=== PATIENT | female | born 1935 | race Caucasian/White ===

== ENCOUNTER 2018-07-24 20:27 | Inpatient (IN) | payer OTHER ==
[2018-07-24] MEDS ORDERED: NA CHLORIDE 0.9% 1,000 ML ONE (20:56)
--- NOTE | 2018-07-24 21:13 | RAD REPORT ---
EXAM DESCRIPTION: RAD - Chest Single View - 07/24/2018 9:05 pm CLINICAL HISTORY: CHEST PAIN Chest pain. COMPARISON: No comparisons FINDINGS: Portable technique limits examination quality. The lungs are emphysematous but clear. The heart is normal in size. No displaced fractures.Atheroscle rosis of aorta. IMPRESSION: Prominent COPD.
--- NOTE | 2018-07-24 21:35 | ER ---
Nurse's Notes [facility] Name: Naun Jewell Age: 83 yrs Sex: Female : 1935 Arrival Date: 07/24/2018 Time: 20:28 Bed 7 Private MD: Diagnosis: Chest pain on breathing;Chest pain, unspecified;Chronic obstructive pulmonary disease with (acute) exacerbation;Urinary tract infection, site not specified Presentation: 07/24 20:28 Presenting complaint: EMS states: they were toned out for report of pt having chest bb pain with SOB after pt did breathing tx pt has had bronchitis. Transition of care: patient was not received from another setting of care. Onset of symptoms was July 24, 2018. Risk Assessment: Do you want to hurt yourself or someone else? Patient reports no desire to harm self or others. Initial Sepsis Screen: Does the patient meet any 2 criteria? No. Patient's initial sepsis screen is negative. Does the patient have a suspected source of infection? No. Patient's initial sepsis screen is negative. Care prior to arrival: Medication(s) given: ASA, 324 mg. 20:28 Method Of Arrival: EMS: [facility] bb 20:28 Acuity: DIDIER 3 bb Historical: - Allergies: 20:30 No Known Allergies; bb - Home Meds: 20:30 albuterol sulfate inhalation Inhl [Active]; bb - PMHx: 20:30 COPD; Bronchitis; bb - PSHx: 20:30 Hysterectomy; bb - Social history:: Smoking status: Patient/guardian denies using tobacco, the patient reports quitting approximately 10 years ago. - Ebola Screening: : No symptoms or risks identified at this time. - Family history:: not pertinent. Screenin:07 Abuse screen: Denies threats or abuse. Denies injuries from another. Nutritional tl1 screening: No deficits noted. Tuberculosis screening: No symptoms or risk factors identified. Fall Risk IV access (20 points). Assessment: 21:08 General: Appears in no apparent distress. comfortable, Behavior is calm, cooperative, tl1 appropriate for age. Pain: Denies pain. Neuro: Level of Consciousness is awake, alert, obeys commands, Oriented to person, place, time, situation. Cardiovascular: Reports shortness of breath, Denies lightheadedness, nausea, palpitations, Heart tones present Capillary refill < 3 seconds Patient's skin is warm and dry. Respiratory: Reports shortness of breath at rest cough that is Airway is patent Trachea midline Respiratory effort is even, unlabored, Respiratory pattern is regular, Breath sounds are coarse bilaterally. GI: Abdomen is non-distended, Bowel sounds present X 4 quads. Abd is soft and non tender X 4 quads. : No signs and/or symptoms were reported regarding the genitourinary system. EENT: No signs and/or symptoms were reported regarding the EENT system. Derm: No signs and/or symptoms reported regarding the dermatologic system. Musculoskeletal: No signs and/or symptoms reported regarding the musculoskeletal system. 23:09 Reassessment: Patient and/or family updated on plan of care and expected duration. Pain tl1 level reassessed. Patient is alert, oriented x 3, equal unlabored respirations, skin warm/dry/pink. Patient states feeling better. Patient states symptoms have improved. Vital Signs: 20:30 BP 162 / 70; Pulse 101; Resp 18 S; Temp 98.3(O); Pulse Ox 93% on R/A; Weight 78.02 kg bb (R); Height 5 ft. 7 in. (170.18 cm) (R); 21:12 BP 148 / 56; Pulse 91; Resp 19; Pulse Ox 94% on R/A; Pain 0/10; tl1 22:09 BP 118 / 72; Pulse 103; Resp 23; Pulse Ox 94% on R/A; Pain 0/10; tl1 23:07 BP 148 / 66; Pulse 103; Resp 20; Temp 98(O); Pulse Ox 94% on R/A; Pain 0/10; tl1 20:30 Body Mass Index 26.94 (78.02 kg, 170.18 cm) ED Course: 20:28 Patient arrived in ED. ds1 20:30 Triage completed. bb 20:30 Arm band placed on Patient placed in an exam room, on a stretcher. bb 20:30 Patient has correct armband on for positive identification. Placed in gown. Bed in low tl1 position. Call light in reach. Side rails up X 1. 20:40 Mahendra Chan MD is Attending Physician. [facility] 20:42 Margret Castillo RN is Primary Nurse. tl1 20:59 No provider procedures requiring assistance completed. Inserted saline lock: 20 gauge tl1 in left antecubital area, using aseptic technique. Blood collected. 21:05 XRAY Chest (1 view) In Process Unspecified. EDMS 21:34 Jared Snyder MD is Hospitalizing Provider. pipo 23:08 Patient admitted, IV remains in place. tl1 Administered Medications: 20:47 Not Given (324mg administered by [facility]): Aspirin 162 mg PO once tl1 20:55 Drug: NS 0.9% 1000 ml Route: IV; Rate: 75 ml/hr; Site: left antecubital; tl1 23:01 Follow up: IV Status: Infusion continued upon admission tl1 21:42 Drug: Xopenex 3.75 mg Route: Inhalation; tl1 22:12 Follow up: Response: No adverse reaction; Marked relief of symptoms tl1 21:42 Drug: AtroVENT Aerosol 0.5 mg Route: Inhalation; tl1 22:13 Follow up: Response: No adverse reaction; Marked relief of symptoms tl1 21:42 Drug: Lovenox 80 mg Route: Sub-Q; Site: abdomen; tl1 22:12 Follow up: Response: No adverse reaction; No change in condition tl1 21:43 Drug: SOLU-Medrol 125 mg Route: IVP; Infused Over: 2 mins; Site: left antecubital; tl1 22:11 Follow up: Response: No adverse reaction; No change in condition tl1 21:49 Drug: Rocephin - (cefTRIAXone) 1 grams Route: IVPB; Infused Over: 30 mins; Site: left tl1 antecubital; 22:11 Follow up: IV Status: Completed infusion tl1 Outcome: 21:35 Decision to Hospitalize by Provider. pipo 23:08 Admitted to Tele accompanied by tech, via wheelchair, with chart, Report called to tl1 Nataly 23:08 Condition: good 23:08 Instructed on the need for admit. 23:10 Patient left the ED. tl1 Signatures: Dispatcher [employer] Mahendra Garcia MD MD cha Sanford, Demi ds1 Mignon Martinez, RN RN bb Margret Castillo RN RN tl1
--- NOTE | 2018-07-24 21:35 | EDPHYS ---
Physician Documentation [facility] Name: Naun Jewell Age: 83 yrs Sex: Female : 1935 Arrival Date: 07/24/2018 Time: 20:28 Bed 7 Private MD: ED Physician Mahendra Chan HPI: 07/24 21:32 This 83 yrs old Female presents to ER via EMS with complaints of chest pain, pipo sob, hx of copd. 21:32 The patient has shortness of breath with light activity. Onset: The symptoms/episode pipo began/occurred just prior to arrival. Duration: The symptoms are chronic. The patient's shortness of breath is aggravated by nothing, is alleviated by nothing. The patient or guardian reports chest pain that is located primarily in the anterior chest wall. Onset: just prior to arrival. The patient or guardian reports airway noise, cough, difficulty breathing. Onset: The symptoms/episode began/occurred 2 day(s) ago. Modifying factors: The symptoms are alleviated by nothing. the symptoms are aggravated by nothing. Historical: - Allergies: 20:30 No Known Allergies; bb - Home Meds: 20:30 albuterol sulfate inhalation Inhl [Active]; bb - PMHx: 20:30 COPD; Bronchitis; bb - PSHx: 20:30 Hysterectomy; bb - Social history:: Smoking status: Patient/guardian denies using tobacco, the patient reports quitting approximately 10 years ago. - Ebola Screening: : No symptoms or risks identified at this time. - Family history:: not pertinent. ROS: 21:32 Constitutional: Negative for fever, chills, and weight loss, Eyes: Negative for injury, pipo pain, redness, and discharge, ENT: Negative for injury, pain, and discharge, Neck: Negative for injury, pain, and swelling, Cardiovascular: Negative for chest pain, palpitations, and edema, Abdomen/GI: Negative for abdominal pain, nausea, vomiting, diarrhea, and constipation, Back: Negative for injury and pain, : Negative for injury, bleeding, discharge, and swelling, MS/Extremity: Negative for injury and deformity, Skin: Negative for injury, rash, and discoloration, Neuro: Negative for headache, weakness, numbness, tingling, and seizure, Psych: Negative for depression, anxiety, suicide ideation, homicidal ideation, and hallucinations, Allergy/Immunology: Negative for hives, rash, and allergies, Endocrine: Negative for neck swelling, polydipsia, polyuria, polyphagia, and marked weight changes, Hematologic/Lymphatic: Negative for swollen nodes, abnormal bleeding, and unusual bruising. 21:32 Respiratory: Positive for cough, shortness of breath, wheezing, inspiratory, expiratory. Exam: 21:32 Constitutional: This is a well developed, well nourished patient who is awake, alert, pipo and in no acute distress. Head/Face: Normocephalic, atraumatic. Eyes: Pupils equal round and reactive to light, extra-ocular motions intact. Lids and lashes normal. Conjunctiva and sclera are non-icteric and not injected. Cornea within normal limits. Periorbital areas with no swelling, redness, or edema. ENT: Nares patent. No nasal discharge, no septal abnormalities noted. Tympanic membranes are normal and external auditory canals are clear. Oropharynx with no redness, swelling, or masses, exudates, or evidence of obstruction, uvula midline. Mucous membranes moist. Neck: Trachea midline, no thyromegaly or masses palpated, and no cervical lymphadenopathy. Supple, full range of motion without nuchal rigidity, or vertebral point tenderness. No Meningismus. Chest/axilla: Normal chest wall appearance and motion. Nontender with no deformity. No lesions are appreciated. Cardiovascular: Regular rate and rhythm with a normal S1 and S2. No gallops, murmurs, or rubs. Normal PMI, no JVD. No pulse deficits. Abdomen/GI: Soft, non-tender, with normal bowel sounds. No distension or tympany. No guarding or rebound. No evidence of tenderness throughout. Back: No spinal tenderness. No costovertebral tenderness. Full range of motion. Female : Normal external genitalia. Skin: Warm, dry with normal turgor. Normal color with no rashes, no lesions, and no evidence of cellulitis. MS/ Extremity: Pulses equal, no cyanosis. Neurovascular intact. Full, normal range of motion. Neuro: Awake and alert, GCS 15, oriented to person, place, time, and situation. Cranial nerves II-XII grossly intact. Motor strength 5/5 in all extremities. Sensory grossly intact. Cerebellar exam normal. Normal gait. Psych: Awake, alert, with orientation to person, place and time. Behavior, mood, and affect are within normal limits. 21:32 Respiratory: the patient does not display signs of respiratory distress, Respirations: labored breathing, that is mild, Breath sounds: decreased breath sounds, rhonchi, wheezing: inspiratory expiratory Vital Signs: 20:30 BP 162 / 70; Pulse 101; Resp 18 S; Temp 98.3(O); Pulse Ox 93% on R/A; Weight 78.02 kg bb (R); Height 5 ft. 7 in. (170.18 cm) (R); 21:12 BP 148 / 56; Pulse 91; Resp 19; Pulse Ox 94% on R/A; Pain 0/10; tl1 22:09 BP 118 / 72; Pulse 103; Resp 23; Pulse Ox 94% on R/A; Pain 0/10; tl1 23:07 BP 148 / 66; Pulse 103; Resp 20; Temp 98(O); Pulse Ox 94% on R/A; Pain 0/10; tl1 20:30 Body Mass Index 26.94 (78.02 kg, 170.18 cm) MDM: 20:40 Patient medically screened. [facility] 21:37 Data reviewed: vital signs, nurses notes, lab test result(s), EKG, radiologic studies, pipo plain films. 07/24 20:43 Order name: Basic Metabolic Panel; Complete Time: 22:39 tl1 07/24 20:43 Order name: CBC with Diff; Complete Time: 22:07 tl1 07/24 20:43 Order name: LFT's; Complete Time: 22:39 tl1 07/24 20:43 Order name: Magnesium; Complete Time: 22:39 1 07/24 20:43 Order name: NT PRO-BNP; Complete Time: 22:39 1 07/24 20:43 Order name: PT-INR; Complete Time: 21:47 tl1 07/24 20:43 Order name: Troponin (emerg Dept Use Only); Complete Time: 22:39 tl1 07/24 20:43 Order name: XRAY Chest (1 view); Complete Time: 21:47 tl1 07/24 20:46 Order name: Urine Culture [facility] 07/24 21:05 Order name: Lipase; Complete Time: 22:39 EDMS 07/24 21:46 Order name: Basic Metabolic Panel EDMS 07/24 21:46 Order name: Basic Metabolic Panel EDMS 07/24 21:46 Order name: CBC with Automated Diff EDMS 07/24 21:46 Order name: CBC with Automated Diff EDMS 07/24 21:46 Order name: NT PRO-BNP EDMS 07/24 21:46 Order name: NT PRO-BNP EDMS 07/24 21:46 Order name: Troponin I EDMS 07/24 21:46 Order name: Troponin I EDMS 07/24 21:46 Order name: Troponin I EDMS 07/24 22:40 Order name: Urine Dipstick--Ancillary (enter results) ms 07/24 23:00 Order name: Urine Dipstick-Ancillary EDMS 07/24 20:43 Order name: EKG; Complete Time: 20:43 tl1 07/24 20:43 Order name: Cardiac monitoring; Complete Time: 20:57 tl1 07/24 20:43 Order name: EKG - Nurse/Tech; Complete Time: 20:56 tl1 07/24 20:43 Order name: IV Saline Lock; Complete Time: 20:56 tl1 07/24 20:43 Order name: Labs collected and sent; Complete Time: 20:56 tl1 07/24 20:43 Order name: O2 Per Protocol; Complete Time: 20:56 tl1 07/24 20:43 Order name: O2 Sat Monitoring; Complete Time: 20:56 tl1 07/24 20:46 Order name: EKG; Complete Time: 20:47 pipo 07/24 20:46 Order name: Cardiac monitoring; Complete Time: 20:57 pipo 07/24 20:46 Order name: EKG - Nurse/Tech; Complete Time: 20:57 pipo 07/24 20:46 Order name: IV Saline Lock; Complete Time: 20:58 pipo 07/24 20:46 Order name: Labs collected and sent; Complete Time: 20:58 pipo 07/24 20:46 Order name: O2 Per Protocol; Complete Time: 20:58 pipo 07/24 20:46 Order name: O2 Sat Monitoring; Complete Time: 20:58 pipo 07/24 20:46 Order name: Urine Dipstick-Ancillary (obtain specimen); Complete Time: 22:39 pipo 07/24 21:46 Order name: CONS Physician Consult EDWI 07/24 21:46 Order name: Heart Healthy EDWI 07/24 21:46 Order name: EKG Electrocardiogram EDWI 07/24 21:46 Order name: EKG Electrocardiogram EDMS 07/24 21:46 Order name: Chest Single View EDMS 07/24 21:46 Order name: Chest Single View EDMS Administered Medications: 20:47 Not Given (324mg administered by EMS [employer]CHNICIAN): Aspirin 162 mg PO once tl1 20:55 Drug: NS 0.9% 1000 ml Route: IV; Rate: 75 ml/hr; Site: left antecubital; tl1 23:01 Follow up: IV Status: Infusion continued upon admission tl1 21:42 Drug: Xopenex 3.75 mg Route: Inhalation; tl1 22:12 Follow up: Response: No adverse reaction; Marked relief of symptoms tl1 21:42 Drug: AtroVENT Aerosol 0.5 mg Route: Inhalation; tl1 22:13 Follow up: Response: No adverse reaction; Marked relief of symptoms tl1 21:42 Drug: Lovenox 80 mg Route: Sub-Q; Site: abdomen; tl1 22:12 Follow up: Response: No adverse reaction; No change in condition tl1 21:43 Drug: SOLU-Medrol 125 mg Route: IVP; Infused Over: 2 mins; Site: left antecubital; tl1 22:11 Follow up: Response: No adverse reaction; No change in condition tl1 21:49 Drug: Rocephin - (cefTRIAXone) 1 grams Route: IVPB; Infused Over: 30 mins; Site: left tl1 antecubital; 22:11 Follow up: IV Status: Completed infusion tl1 Disposition: 07/24/18 21:35 Hospitalization ordered by Jared Snyder for Inpatient Admission. Preliminary diagnosis are Chest pain on breathing, Chest pain, unspecified, Chronic obstructive pulmonary disease with (acute) exacerbation, Urinary tract infection, site not specified. - Bed requested for Telemetry/MedSurg (Inpatient). - Status is Inpatient Admission. tl1 - Condition is Fair. - Problem is new. - Symptoms have improved. UTI on Admission? Yes Signatures: Dispatcher [employer] EDMS Mahendra Chan MD MD cha Ballard, Brenda, RN RN Alis Florez ms, Tonya, RN RN tl1 Zahra Bill RN RN cg Corrections: (The following items were deleted from the chart) 20:49 20:46 Chest Single View+RAD.RAD.BRZ ordered. [facility] EDWI 21: 20:46 BASIC METABOLIC PANEL+C.LAB.BRZ ordered. [facility] 21: 20:46 HEPATIC FUNCTION+C.LAB.BRZ ordered. [facility] 21: 20:46 MAGNESIUM+C.LAB.BRZ ordered. [facility] 21: 20:46 PROBNP+C.LAB.BRZ ordered. [facility] 21: 20:46 TROPONIN (EMERG DEPT USE ONLY)+C.LAB.BRZ ordered. [facility] 21: 20:46 LIPASE+C.LAB.BRZ ordered. [facility] 21: 20:46 CBC+H.LAB.BRZ ordered. [facility] 21: 20:46 PROTIME (+INR)+COAG.LAB.BRZ ordered. [facility] 22: 21:35 Hospitalization Ordered by Jared Snyder MD for Inpatient Admission. Preliminary ms diagnosis is Chest pain on breathing; Chest pain, unspecified; Chronic obstructive pulmonary disease with (acute) exacerbation. Bed requested for Telemetry/MedSurg (Inpatient). Status is Inpatient Admission. Condition is Fair. Problem is new. Symptoms have improved. UTI on Admission? No. pipo 22:41 22:21 07/24/2018 21:35 Hospitalization Ordered by Jared Snyder MD for Inpatient pipo Admission. Preliminary diagnosis is Chest pain on breathing; Chest pain, unspecified; Chronic obstructive pulmonary disease with (acute) exacerbation. Bed requested for Telemetry/MedSurg (Inpatient). Status is Inpatient Admission. Condition is Fair. Problem is new. Symptoms have improved. UTI on Admission? No. ms 22:59 22:41 07/24/2018 21:35 Hospitalization Ordered by Jared Snyder MD for Inpatient cg Admission. Preliminary diagnosis is Chest pain on breathing; Chest pain, unspecified; Chronic obstructive pulmonary disease with (acute) exacerbation; Urinary tract infection, site not specified. Bed requested for Telemetry/MedSurg (Inpatient). Status is Inpatient Admission. Condition is Fair. Problem is new. Symptoms have improved. UTI on Admission? Yes. pipo 23:10 22:59 07/24/2018 21:35 Hospitalization Ordered by Jared Snyder MD for Inpatient tl1 Admission. Preliminary diagnosis is Chest pain on breathing; Chest pain, unspecified; Chronic obstructive pulmonary disease with (acute) exacerbation; Urinary tract infection, site not specified. Bed requested for Telemetry/MedSurg (Inpatient). Status is Inpatient Admission. Condition is Fair. Problem is new. Symptoms have improved. UTI on Admission? Yes. cg
[2018-07-24] MEDS ORDERED: METHYLPREDNISOLONE 125 MG INJ ONE (21:41)
[2018-07-24] MEDS ORDERED: ACETAMINOPHEN 500 MG TAB PO PRN (21:41)
[2018-07-24] MEDS ORDERED: IPRATROPIUM BROM 0.5MG/2.5ML ONE (21:41)
[2018-07-24] MEDS ORDERED: LEVALBUTEROL 1.25 MG/3 ML NEB ONE (21:41)
[2018-07-24] MEDS ORDERED: IPRATROPIUM BROM 0.5MG/2.5ML NEB PRN (21:41)
[2018-07-24] MEDS ORDERED: MORPHINE 4 MG/ML SYR IV PRN (21:41)
[2018-07-24] MEDS ORDERED: ONDANSETRON 4 MG/2 ML VIAL IV PRN (21:41)
[2018-07-24] MEDS ORDERED: ENOXAPARIN 80 MG/0.8 ML SQ ONE (21:42)
[2018-07-24 21:50] LABS: Absolute Lymphocytes (CBC) 2.6 K/uL (0.7-4.9); Absolute Neutrophil 7.3 K/uL (1.8-8.0); Basophils % 0.6 % (0-1.3); Eosinophils % 6.1 % (0-4.4); Hematocrit 41.5 % (36.0-45.0); Lymphocytes % 22.2 % (15.3-44.8); MCH 31.6 pg (27.0-35.0); MPV 8.5 fL (7.6-11.3); Monocytes % 8.9 % (3.3-12.3); RBC Red Blood Cell Count 4.42 M/uL (3.86-4.86)
[2018-07-24] MEDS ORDERED: CEFTRIAXONE/SWI 1gm 1 GM/10 ML SYR ONE (21:53)
[2018-07-24 22:10] LABS: ALT/SGPT 25 U/L (12-78); AST/SGOT 19 U/L (15-37); Albumin 3.6 g/dL (3.4-5.0); Alkaline Phosphatase 98 U/L (45-117); BUN Blood Urea Nitrogen 15 mg/dL (7-18); Bicarbonate 29 mmol/L (21-32); Bilirubin Direct 0.1 mg/dL (0-0.2); Bilirubin Total 0.3 mg/dL (0.2-1.0); Glucose Level 121 mg/dL (74-106); Lipase 136 U/L (73-393); Magnesium 2.3 mg/dL (1.8-2.4); NT PRO-BNP 56 pg/mL (<450); Potassium 3.6 mmol/L (3.5-5.1); Protein, Total 7.4 g/dL (6.4-8.2); Sodium Level 135 mmol/L (136-145); Troponin (Emerg Dept Use Only) < 0.02 ng/mL (0.0-0.045)
[2018-07-24 23:00] LABS: Urine Blood NEGATIVE (NEG); Urine Glucose NEGATIVE (NEG); Urine Protein NEGATIVE (NEG); Urine Specific Gravity <1.005 (1.005-1.030); Urine pH 5.5 (5.0-7.0)
[2018-07-25 00:49] VITALS: BMI 27.3
[2018-07-25] MEDS: METHYLPREDNISOLONE 40 MG INJ IV SCH ×3 (01:00→17:00)
[2018-07-25] MEDS: ALBUTEROL 2.5 MG/3 ML NEB SOL NEB SCH ×7 (01:06→20:04)
[2018-07-25 05:14] LABS: Absolute Lymphocytes (CBC) 0.5 K/uL (0.7-4.9); Absolute Monocytes 0.1 K/uL (0.1-1.3); Absolute Neutrophil 9.1 K/uL (1.8-8.0); Basophils % 0.2 % (0-1.3); Eosinophils % 0.1 % (0-4.4); Hematocrit 44.1 % (36.0-45.0); Lymphocytes % 5.2 % (15.3-44.8); MCV 93.1 fL (80-100); MPV 8.4 fL (7.6-11.3); Monocytes % 0.6 % (3.3-12.3); RBC Red Blood Cell Count 4.74 M/uL (3.86-4.86)
[2018-07-25 05:47] LABS: Blood Morphology Comment NOT SEEN (NOT SEEN); Platelet Estimate ADEQ
--- NOTE | 2018-07-25 08:33 | RAD REPORT ---
EXAM DESCRIPTION: Narciso Single View07/25/2018 6:50 am CLINICAL HISTORY: Chest pain COMPARISON: none FINDINGS: The lungs appear clear of acute infiltrate. A small granuloma is suspected within the rig ht lung. The heart is normal size IMPRESSION: No acute abnormalities displayed
[2018-07-25] MEDS ORDERED: ENOXAPARIN 80 MG/0.8 ML SQ SCH ×2 (09:00)
[2018-07-25] MEDS ORDERED: CEFTRIAXONE 1 GM/NS 50 ML 1 GM/50 ML BAG IV SCH (09:00)
[2018-07-25] MEDS: ASPIRIN EC 81 MG TAB PO SCH (09:50)
--- NOTE | 2018-07-25 12:33 | P.SSS ---
Patient History Date of Service: 07/25/18 Reason for admission: CHEST HEAVINESS History of Present Illness: MS. VINCENT HAS HAD COPD FOR YEARS, LATELY SHE HAS EXACERBATION AND LAST SET OF INHALERS ARE WORKING WELL WITH HER. SHE CAME TO ER SHE HAD SOME CHEST HEAVINESS. THIS PAIN IS GONE NOW. SHE IS SITTING IN BED WITH NO SYMPTOMS. HER EKG IS NORMAL. SHE IS ABLE TO AMBULATE WITH NO PAIN NOW. Allergies No Known Allergies Allergy (Verified 07/25/18 01:15) Home Medications: Albuterol Sulfate [Proair Hfa] 2 puff IH QIDP PRN 07/25/18 - Past Medical/Surgical History Has patient received pneumonia vaccine in the past: Yes Diabetic: No -: COPD -: bronchitis -: hysterectomy - Family History Mother -: Heart disease Father -: Lung disease - Social History Smoking Status: Former smoker Alcohol use: No CD- Drugs: No Caffeine use: Yes Place of Residence: Home Review of Systems 10-point ROS is otherwise unremarkable Respiratory: Shortness of Breath Physical Examination - Vital Signs Temperature: 98.1 F Blood Pressure: 128/69 Pulse: 98 Respirations: 17 Pulse Ox (%): 92 - Physical Exam General: Alert, In no apparent distress HEENT: Atraumatic, PERRLA, Mucous membr. moist/pink, EOMI, Sclerae nonicteric Neck: Supple, 2+ carotid pulse no bruit, No LAD, Without JVD or thyroid abnormality Respiratory: Diminished Cardiovascular: Regular rate/rhythm, Normal S1 S2 Gastrointestinal: Normal bowel sounds, No tenderness Musculoskeletal: No tenderness Integumentary: No rashes Neurological: Normal gait, Normal speech, Normal strength at 5/5 x4 extr, Normal tone, Normal affect Lymphatics: No axilla or inguinal lymphadenopathy - Studies Laboratory Data (last 24 hrs) 07/24/18 20:46: PT Cancelled, INR Cancelled 07/24/18 20:46: WBC Cancelled, Hgb Cancelled, Hct Cancelled, Plt Count Cancelled 07/24/18 20:46: Sodium Cancelled, Potassium Cancelled, BUN Cancelled, Creatinine Cancelled, Glucose Cancelled, Magnesium Cancelled, Total Bilirubin Cancelled, AST Cancelled, ALT Cancelled, Alkaline Phosphatase Cancelled, Lipase Cancelled 07/24/18 20:45: PT 11.8, INR 1.00 07/24/18 20:45: WBC 11.7 H, Hgb 14.0, Hct 41.5, Plt Count 285 07/24/18 20:45: Sodium 135 L, Potassium 3.6, BUN 15, Creatinine 0.90, Glucose 121 H, Magnesium 2.3, Total Bilirubin 0.3, AST 19, ALT 25, Alkaline Phosphatase 98, Lipase 136 - Diagnosis (Problem(s)) (1) Chest heaviness Current Visit: Yes Status: Acute Plan: SHE WILL GO TO [facility]. SHE HAS NO PAIN EKG IS NORMAL TROPONIN IS NORMAL. STABLE FOR DC. (2) COPD exacerbation Current Visit: Yes Status: Chronic Plan: SHE HAS CURRENT HOME RX THAT WORKS GREAT. - Disposition Disposition: ROUTINE DISCHARGE Condition: FAIR Patient Discharge Instructions: MAKE APT WITH DR DICKENS OR DR. JAEGER OUTPATIENT . I WILL SEE YOU IN A WEEK OR SO. CONTINUE COPD MEDICATIONS. Diet: AHA
[2018-07-25] MEDS: ARFORMOTEROL TARTRATE 15 MCG/2 ML VIAL.NEB NEB SCH (20:04)
[2018-07-25] MEDS ORDERED: FAMOTIDINE 20 MG/2 ML VIAL IV SCH (21:00)
[2018-07-25] MEDS ORDERED: CEFTRIAXONE/SWI 1gm 1 GM/10 ML SYR IV SCH (21:00)
[2018-07-26] MEDS: METHYLPREDNISOLONE 40 MG INJ IV SCH ×2 (00:14→08:54)
[2018-07-26] MEDS: ALBUTEROL 2.5 MG/3 ML NEB SOL NEB SCH ×3 (00:20→07:55)
[2018-07-26 07:50] VITALS: BP 142/60; TEMP 97.6
--- NOTE | 2018-07-26 07:54 | EKG ---
Test Date: 2018-07-24 Test Time: 20:27:35 Education Specialist: MARY LOU MEASUREMENT RESULTS: Intervals: Rate: 95 SC: 152 QRSD: 74 QT: 342 QTc: 429 [place]: P: 81 SC: 152 QRS: 79 T: 78 INTERPRETIVE STATEMENTS: Normal sinus rhythm Normal ECG No previous ECG available for comparison Electronically Signed On 07-26-18 07:49:16 CDT by Víctor Contreras
[2018-07-26] MEDS: ARFORMOTEROL TARTRATE 15 MCG/2 ML VIAL.NEB NEB SCH (07:55)
[2018-07-26 08:28] VITALS: O2SAT 95
[2018-07-26] MEDS: ASPIRIN EC 81 MG TAB PO SCH (08:54)
--- NOTE | 2018-07-26 09:09 | P.DS ---
Admission Date: 07/24/18 Discharge Date: 07/26/18 Disposition: ROUTINE DISCHARGE Discharge Condition: FAIR Reason for Admission: CHEST HEAVINESS - Problems (1) Chest heaviness Current Visit: Yes Status: Acute (2) COPD exacerbation Current Visit: Yes Status: Chronic Brief History of Present Illness: MS. VINCENT HAS HAD COPD FOR YEARS, LATELY SHE HAS EXACERBATION AND LAST SET OF INHALERS ARE WORKING WELL WITH HER. SHE CAME TO ER SHE HAD SOME CHEST HEAVINESS. THIS PAIN IS GONE NOW. SHE IS SITTING IN BED WITH NO SYMPTOMS. HER EKG IS NORMAL. SHE IS ABLE TO AMBULATE WITH NO PAIN NOW. OXYGEN ORDER WAS SENT YESTERDAY FROM MY OFFICE AT ABOUT 12 NOON TO [facility]. OXYGEN COULD NOT BE DELIVERED. HER SAT IS ABOUT 86% ON RA. THIS IS WHY SHE HAD CHEST PAIN MOST LIKELY. SHE IS DOING WELL. HAS ALL MEDS FOR COPD AT HOME. SHE IS GOING HOME TODAY. OXYGEN IS STILL NOT DELIVERED BUT WILL BE TODAY. Vital Signs/Physical Exam: Temp Pulse Resp BP Pulse Ox 97.6 F 89 18 142/60 H 94 07/26/18 07:49 07/26/18 07:49 07/26/18 07:49 07/26/18 07:49 07/26/18 07:49 Laboratory Data at Discharge: WBC 9.7 K/uL (4.3-10.9) D 07/25/18 04:38 Hgb 15.2 g/dL (12.0-15.0) H 07/25/18 04:38 Hct 44.1 % (36.0-45.0) 07/25/18 04:38 Plt Count 316 K/uL (152-406) 07/25/18 04:38 PT Cancelled 07/24/18 20:46 INR Cancelled 07/24/18 20:46 Sodium 139 mmol/L (136-145) 07/25/18 04:38 Potassium 4.0 mmol/L (3.5-5.1) 07/25/18 04:38 BUN 15 mg/dL (7-18) 07/25/18 04:38 Creatinine 0.80 mg/dL (0.55-1.3) 07/25/18 04:38 Glucose 167 mg/dL (74-106) H 07/25/18 04:38 Magnesium Cancelled 07/24/18 20:46 Total Bilirubin Cancelled 07/24/18 20:46 AST Cancelled 07/24/18 20:46 ALT Cancelled 07/24/18 20:46 Alkaline Phosphatase Cancelled 07/24/18 20:46 Troponin I < 0.02 ng/mL (0.0-0.045) 07/25/18 02:01 Lipase Cancelled 07/24/18 20:46 Home Medications: Albuterol Sulfate [Proair Hfa] 2 puff IH QIDP PRN 07/25/18 Patient Discharge Instructions: MAKE APT WITH DR DICKENS OR DR. GHOSH OUTPATIENT . I WILL SEE YOU IN A WEEK OR SO. CONTINUE COPD MEDICATIONS. Diet: AHA Followup: Jared Snyder MD [ACTIVE - CAN ADMIT] - Patrick Ghosh MD [ACTIVE - CAN ADMIT] -
--- NOTE | 2018-07-26 11:42 | CON ---
Date of Consultation: 07/25/2018 Reason For Consultation: COPD and chest pain. History Of Present Illness: Ms. Jewell is an 83-year-old woman, who is actually very healthy in [facility], except for COPD. She came in with some chest pain that is midepigastric, radiating to the back an d radiating to the both shoulders after inhaler treatment. The pain resolved in about 10 minutes. N o nausea, vomiting, diaphoresis, PND, orthopnea, pedal edema, palpitation, or syncope. Her EKG was u nremarkable. CPKs, MBs, troponin, and BNP were unremarkable. Allergies: NONE. Review of Systems: Negative. Social History: Negative. Family History: Negative. Medications: At home include albuterol inhalers. Physical Examination: General: She was pain free, sinus rhythm. Vital Signs: Stable. Afebrile. HEENT: Negative. Neck: Supple with no bruit. No lymphadenopathy or JVD. Chest: Reveals some expiratory wheezing. Cardiac: Exam was normal. Regular rhythm and rate. No murmurs, gallops, or rubs. Abdomen: Benign. Extremities: Revealed no clubbing, cyanosis, or edema. Diagnostic Data: Except for a glucose of 167 were normal. Impression And Plan: Chest pain that is suggestive of coronary artery disease, although it could pos sibly be gastroesophageal reflux disease or chronic obstructive pulmonary disease exacerbation. Her symptoms started after inhaler treatment. She certainly could have some coronary spasm secondary to that. She is comfortable now. She has ruled out for an PR. She certainly can go home whenever it i s okay with Dr. Snyder. I think a low-dose beta-blockers and nitroglycerin p.r.n. as well as aspirin is recommended. I think she needs to have an outpatient cardiac workup including a Lexiscan and an e chocardiogram and I will make arrangements for that as an outpatient. I will call Dr. Snyder to discu ss the case with him. The patient understands the plans. TIMUR/GÓMEZ Voice ID: [id number] Report ID: [id number]
== END 2018-07-26 11:45 | disposition home or self-care (01) | DRG 313 ==
LOC: ER 20:27 → ERHOLD 21:59 → 2ND 22:47
PROVIDERS: ADMIT Internal Medicine; ATTEND Internal Medicine
DX: R07.89 Other chest pain (principal); J44.1 Chronic obstructive pulmonary disease with (acute) exacerbation; Z87.891 Personal history of nicotine dependence
CPT/HCPCS: 36415; 71045; 80048; 80076; 81003; 83690; 83735; 83880; 84484; 85025; 85610; 87086; 87088; 93005; 94640; 94760; 96361; 96365; 96372; 96375; 99285; J0696; J1650; J2920; J2930; J7030; J7605

== ENCOUNTER 2024-01-20 14:51 | Inpatient (IN) | payer OTHER ==
[2024-01-20] MEDS ORDERED: ALBUTEROL 2.5 MG/3 ML NEB SOL ONE (15:22)
[2024-01-20] MEDS ORDERED: MAGNESIUM SULFATE 1 gm IVPB 1 GM/100 ML BAG IV ONE (15:23)
[2024-01-20] MEDS ORDERED: IPRATROPIUM BROM 0.5MG/2.5ML ONE (15:23)
[2024-01-20] MEDS ORDERED: METHYLPREDNISOLONE 125 MG INJ ONE (15:23)
[2024-01-20 15:40] LABS: Absolute Lymphocytes (CBC) 0.8 K/uL (0.7-4.9); Absolute Monocytes 1.3 K/uL (0.1-1.3); Absolute Neutrophil 11.5 K/uL (1.8-8.0); Basophils % 0.1 % (0-1.3); Eosinophils % 0.2 % (0-4.4); Hematocrit 40.2 % (36.0-45.0); Hemoglobin 13.2 g/dL (12.0-15.0); Lymphocytes % 6.2 % (15.3-44.8); MCH 30.6 pg (27.0-35.0); MCHC 32.9 g/dL (32.0-36.0); MCV 93.1 fL (80-100); MPV 7.4 fL (7.6-11.3); Monocytes % 9.4 % (3.3-12.3); Neutrophils % 84.1 % (41.7-73.7); Platelets 394 thou/uL (152-406); RBC Red Blood Cell Count 4.32 M/uL (3.86-4.86); Red Cell Distribution Width 13.9 % (12.1-15.2)
[2024-01-20 15:45] LABS: PT Prothrombin Time 13.6 SECONDS (9.5-12.5); PTT, Activated Partial Thromb 35.1 SECONDS (24.3-36.9); Protime INR 1.24
--- NOTE | 2024-01-20 15:51 | RAD REPORT ---
EXAM DESCRIPTION: Narciso Single View01/20/2024 3:38 pm CLINICAL HISTORY: Shortness of breath COMPARISON: 2018 FINDINGS: Mild opacities within left lung Right lung appears clear of acute infiltrate Calcified granulomas within lungs Heart is normal size IMPRESSION: Mild opacities left lung may indicate mild pneumonia
[2024-01-20 15:58] LABS: Albumin 2.8 g/dL (3.4-5.0); Albumin/Globulin Ratio 0.5 (1.1-1.8); Anion Gap 10.3 mEq/L (5.0-15.0); Bilirubin Direct 0.2 mg/dL (0-0.2); Bilirubin Indirect, Calculated 0.4 mg/dL (0.2-0.8); Bilirubin Total 0.6 mg/dL (0.2-1.0); Globulin 5.3 g/dL (2.3-3.5); Magnesium 2.1 mg/dL (1.6-2.4); Potassium 3.3 mEq/L (3.5-5.1); Protein, Total 8.1 g/dL (6.4-8.2)
[2024-01-20 16:00] LABS: Troponin High Sensitivity 77.9 pg/mL (<58.9)
[2024-01-20 16:11] LABS: INFLUENZA A NAA NEGATIVE (NEGATIVE); RESPIRATORY SYNCYTIAL VIR NAA NEGATIVE (NEGATIVE); SARS-COV-2 RT PCR NEGATIVE (NEGATIVE)
[2024-01-20] MEDS ORDERED: NA CHLORIDE 0.9% 250 ML ONE (16:13)
[2024-01-20] MEDS ORDERED: AZITHROMYCIN 500 MG INJ IVPB ONE (16:13)
[2024-01-20] MEDS ORDERED: CEFTRIAXONE 1000 MG/VIAL ONE (16:13)
[2024-01-20] MEDS ORDERED: NA CHLORIDE 0.9% 50 ML ONE (16:13)
--- NOTE | 2024-01-20 16:47 | ER ---
Nurse's Notes [facility] Name: Naun Jewell Age: 88 yrs Sex: Female : 1935 Arrival Date: 01/20/2024 Time: 14:51 Bed 2 Private MD: Diagnosis: Lobar pneumonia, unspecified organism;Severe sepsis without septic shock;COPD/ Chronic obstructive pulmonary disease with (acute) exacerbation Presentation: 01/19 14:59 Chief complaint: Patient states: SOB, cough, fever since . Coronavirus screen: ll1 Vaccine status: Patient reports receiving the 2nd dose of the covid vaccine. Client denies travel out of the [place] in the last 14 days. Ebola Screen: Patient denies travel to an Ebola-affected area in the 21 days before illness onset. Initial Sepsis Screen: Does the patient meet any 2 criteria? No. Patient's initial sepsis screen is negative. Does the patient have a suspected source of infection? No. Patient's initial sepsis screen is negative. Risk Assessment: Do you want to hurt yourself or someone else? Patient reports no desire to harm self or others. Onset of symptoms was January 12, 2024. 14:59 Method Of Arrival: Ambulatory ll1 14:59 Acuity: DIDIER 2 ll1 Triage Assessment: 15:11 General: Appears uncomfortable, ill, Behavior is cooperative, appropriate for age. ll1 General: Reports fever for feeling ill for fatigue for. Pain: Complains of pain in back Pain currently is 5 out of 10 on a pain scale. Quality of pain is described as aching, Aggravated by cough, SOB. Respiratory: Reports shortness of breath cough that is. 20:19 Respiratory: the patient has mild shortness of breath. rv Historical: - Allergies: 14:58 No Known Allergies; ll1 - PMHx: 14:58 Bronchitis; COPD; ll1 - Immunization history:: Adult Immunizations up to date. - Infectious Disease History:: Denies. - Social history:: Smoking status: Patient/guardian denies using tobacco. Screenin:55 [facility] ED Fall Risk Assessment (Adult) History of falling in the last 3 months, ko1 including since admission No falls in past 3 months (0 pts) Confusion or Disorientation No (0 pts) Intoxicated or Sedated No (0 pts) Impaired Gait No (0 pts) Mobility Assist Device Used No (0 pt) Altered Elimination No (0 pt) Score/Fall Risk Level 0 - 2 = Low Risk Oriented to surroundings, Maintained a safe environment, Educated pt \T\ family on fall prevention, incl call for assistance when getting out of bed, Assessed \T\ reinforced patient's understanding of fall precautions, Provided non-skid footwear, Hourly rounding (assess needs \T\ fall precautionary measures) done, Used ambulatory aids as needed (educated on \T\ assisted with), Used gait belt as appropriate. Abuse screen: Denies threats or abuse. Denies injuries from another. Nutritional screening: No deficits noted. Tuberculosis screening: No symptoms or risk factors identified. Assessment: 15:24 Reassessment: Patient appears in no apparent distress at this time. Patient and/or db family updated on plan of care and expected duration. Pain level reassessed. Patient is alert, oriented x 3, equal unlabored respirations, skin warm/dry/pink. General: Appears distressed, uncomfortable, Behavior is cooperative, anxious. Neuro: Level of Consciousness is awake, alert, obeys commands, Oriented to person, place, time. Cardiovascular:. Respiratory: Airway is patent Respiratory effort is even, labored, 16:26 Reassessment: Patient appears in no apparent distress at this time. Patient and/or db family updated on plan of care and expected duration. Pain level reassessed. Patient is alert, oriented x 3, equal unlabored respirations, skin warm/dry/pink. Patient states feeling better. 18:33 Reassessment: PATIENT REPORT FAXED TO 2ND FLOOR. db 18:38 Reassessment: Patient appears in no apparent distress at this time. Patient and/or db family updated on plan of care and expected duration. Pain level reassessed. patient [facility] 20:09 Reassessment:. rv 20:14 Reassessment: report faxed and received by Pam NEVES. rv Vital Signs: 14:59 BP 156 / 72; Pulse 119; Resp 24; Temp 98.2; Pulse Ox 81% ; Weight 90.72 kg; Height 5 ll1 ft. 6 in. ; Pain 5/10; 15:11 Pulse Ox 83% on 3 lpm NC; ll1 15:55 BP 161 / 71; Pulse 110; Resp 19; Pulse Ox 100% on Nebulizer Mask; ko1 16:10 BP 155 / 62; Pulse 105; Resp 19; Pulse Ox 96% ; ko1 17:00 BP 113 / 99; Pulse 117; Resp 18; Pulse Ox 95% on 3 lpm NC; db 18:30 BP 156 / 80; Pulse 109; Resp 25; Temp 98; Pulse Ox 94% on 3 lpm NC; db 20:18 BP 159 / 67; Pulse 106; Resp 20; Temp 98; Pulse Ox 95% on 3 lpm NC; rv 14:59 Body Mass Index 32.28 (90.72 kg, 167.64 cm) ll1 14:59 Pain Scale: Adult ll1 15:11 SOB noted when moved from wheelchair to stretcher. ll1 ED Course: 14:52 Patient arrived in ED. rg4 14:53 Adrienne Godfrey PA-C is PHCP. sb4 14:53 Lito Arguello DO is Attending Physician. sb4 15:00 Triage completed. ll1 15:10 Arm band placed on Patient placed in an exam room, on a stretcher. ll1 15:19 Inserted saline lock: 22 gauge in right antecubital area, using aseptic technique. db Blood collected. Oxygen administration via nasal cannula \T\ 3L/min Response to oxygen therapy: symptoms improved. 15:19 Initial lab(s) drawn, by me, sent to lab. First set of blood cultures drawn by me, db COVID swab sent to lab. Flu and/or RSV swab sent to lab. 15:23 Shawna Canales, RN is Primary Nurse. db 15:25 Patient has correct armband on for positive identification. Bed in low position. Call db light in reach. Side rails up X 1. Client placed on continuous cardiac and pulse oximetry monitoring. NIBP monitoring applied. vehicle monitor technician on. Pulse ox on. NIBP on. 15:28 EKG done, by ED staff, reviewed by Adrienne Godfrey PA-C. em1 15:40 XRAY CXR (1 view) In Process Unspecified. EDMS 16:46 Jared Snyder MD is Hospitalizing Provider. sb4 16:50 Chest For PE Angio CT In Process Unspecified. EDMS 18:26 Repeat lab(s) drawn. by me, sent to lab. db 19:07 Provided Education on: ADMISSION, LABS. db 19:07 No provider procedures requiring assistance completed. Patient admitted, IV remains in db place. 19:08 Report given to BOAT CANVAS INSTALLER RN. db 19:44 Inserted saline lock: 20 gauge in left forearm, using aseptic technique. rv Administered Medications: 15:32 Drug: MethylPrednisoLONE IVP 125 mg IVP once Route: IVP; Site: right antecubital; ko1 15:55 Follow up: Response: No adverse reaction ko1 15:32 Drug: DuoNeb Nebulize (3:1) (2.5 mg - 0.5 mg) 3 ml Nebulizer once Route: Nebulizer; ko1 15:54 Follow up: Response: No adverse reaction; Wheezing diminished ko1 15:55 Follow up: Response: No adverse reaction; Wheezing diminished ko1 16:26 Follow up: Response: No adverse reaction db 15:32 Drug: Magnesium Sulfate IVPB 1 grams IVPB once over 1 hrs Route: IVPB; Infused Over: 1 ko1 hrs; Site: right antecubital; 16:26 Follow up: Response: No adverse reaction; IV Status: Completed infusion; IV Intake: 50mldb 16:08 Drug: Rocephin IV 1 grams IV at calculated rate once; Given slow IV push per pharmacy db instructions Route: IV; Rate: calculated rate; Site: right antecubital; 16:24 Follow up: Response: No adverse reaction; IV Status: Completed infusion; IV Intake: 50mldb 16:25 Drug: AZITHromycin IVPB 500 mg IVPB once over 1 hrs; (mix in 250 mL NS) Route: IVPB; db Infused Over: 1 hrs; Site: right antecubital; 20:19 Follow up: Response: No adverse reaction; IV Status: Completed infusion; IV Intake: rv 250ml 17:07 Drug: Aspirin PO Chewable Tablet 162 mg PO once Route: PO; db 20:19 Follow up: Response: No adverse reaction rv 19:44 Drug: NS 0.9% IV 1000 ml IV at 1 bolus Per protocol; 1000 mL bolus Route: IV; Rate: 1 rv bolus; Site: left forearm; 20:19 Follow up: IV Status: Completed infusion; IV Intake: 1000ml rv Medication: 19:07 VIS not applicable for this client. db Intake: 16:24 IV: 50ml; Total: 50ml. db 16:26 IV: 50ml; Total: 100ml. db 20:19 IV: 1000ml; Total: 1100ml. rv 20:19 IV: 250ml; Total: 1350ml. rv Outcome: 16:47 Decision to Hospitalize by Provider. sb4 19:07 Admitted to ER Hold. Please see [facility] for further documentation. db 19:07 Condition: stable 19:07 Instructed on the need for admit, 20:49 Patient left the ED. rv Signatures: Dispatcher [employer] EDMS Jaquan Najera em1 Katerina Bill rg4 Rafiq Menendez, RN RN rv Reilly Baker RN RN ll1 Martina Brown, EDINSON RN ko1 Shawna Canales, RN RN db Adrienne Godfrey, PA-C PA-C sb4 Corrections: (The following items were deleted from the chart) 16:25 16:25 Rocephin IV 1 grams IV at calculated rate in right antecubital db db 18:54 18:43 Repeat lab(s) drawn. by me, sent to lab. db db 19:07 19:05 Reassessment: Patient appears in no apparent distress at this time. Patient db and/or family updated on plan of care and expected duration. Pain level reassessed. patient room changed no longer going to 218 db
--- NOTE | 2024-01-20 16:48 | EDPHYS ---
Physician Documentation [facility] Name: Naun Jewell Age: 88 yrs Sex: Female : 1935 Arrival Date: 01/20/2024 Time: 14:51 Bed 2 Private MD: ED Physician Lito Arguello HPI: 01/19 15:11 This 88 yrs old Female presents to ER via Ambulatory with complaints of Breathing sb4 Difficulty. 15:11 The patient has shortness of breath at rest. Onset: The symptoms/episode began/occurred sb4 4 day(s) ago. Duration: The symptoms are continuous. The patient's shortness of breath is aggravated by exertion, is alleviated by nothing. Associated signs and symptoms: Pertinent positives: non-productive cough, fever. The patient has experienced similar episodes in the past, a few times. The patient has been recently seen at an urgent care, just prior to arrival, for similar complaints, and was sent to the [facility] Emergency Department for further evaluation. 15:14 went to urgent care today, pulse ox 75% there, sent here. sb4 Historical: - Allergies: 14:58 No Known Allergies; ll1 - PMHx: 14:58 Bronchitis; COPD; ll1 - Immunization history:: Adult Immunizations up to date. - Infectious Disease History:: Denies. - Social history:: Smoking status: Patient/guardian denies using tobacco. ROS: 15:11 Cardiovascular: Negative for chest pain, palpitations, and edema, sb4 15:11 Constitutional: Positive for fever, 15:11 Respiratory: Positive for cough, dyspnea on exertion, shortness of breath, wheezing, 15:11 All other systems are negative, Exam: 15:11 Head/Face: Normocephalic, atraumatic. Eyes: Extra-ocular motions intact. Periorbital sb4 areas with no swelling, redness, or edema. ENT: Mucous membranes moist. Abdomen/GI: Soft, non-tender, no distension. Skin: Warm, dry with normal turgor. Normal color with no rashes, no lesions, and no evidence of cellulitis. MS/ Extremity: Pulses equal, no cyanosis. Neurovascular intact. Full, normal range of motion. Neuro: Awake and alert, GCS 15, oriented to person, place, time, and situation. Motor strength 5/5 in all extremities. Sensory grossly intact. 15:11 Constitutional: The patient appears alert, awake, in obvious distress, moderately distressed, 15:11 Respiratory: moderate respiratory distress is noted, Respirations: labored breathing, that is moderate, tachypnea, Breath sounds: wheezing: expiratory is scattered, Vital Signs: 14:59 BP 156 / 72; Pulse 119; Resp 24; Temp 98.2; Pulse Ox 81% ; Weight 90.72 kg; Height 5 ll1 ft. 6 in. ; Pain 5/10; 15:11 Pulse Ox 83% on 3 lpm NC; ll1 15:55 BP 161 / 71; Pulse 110; Resp 19; Pulse Ox 100% on Nebulizer Mask; ko1 16:10 BP 155 / 62; Pulse 105; Resp 19; Pulse Ox 96% ; ko1 17:00 BP 113 / 99; Pulse 117; Resp 18; Pulse Ox 95% on 3 lpm NC; db 18:30 BP 156 / 80; Pulse 109; Resp 25; Temp 98; Pulse Ox 94% on 3 lpm NC; db 20:18 BP 159 / 67; Pulse 106; Resp 20; Temp 98; Pulse Ox 95% on 3 lpm NC; rv 14:59 Body Mass Index 32.28 (90.72 kg, 167.64 cm) ll1 14:59 Pain Scale: Adult ll1 15:11 SOB noted when moved from wheelchair to stretcher. ll1 MDM: 15:02 Patient medically screened. sb4 15:11 Differential diagnosis: Bronchitis Chronic Obstructive Pulmonary Disease Pneumothorax sb4 pulmonary edema. 16:44 Antibiotic administration: Rocephin and Zithromax given. Data interpreted: Pulse sb4 oximetry: on 3L(s) per nasal canula, is 96 %. Data reviewed: vital signs, nurses notes, lab test result(s), EKG, radiologic studies, I have discussed the patient's presentation/case with the attending Emergency Department Physician; and as a result, I will admit patient. Consideration of Admission/Observation Patient was admitted/placed on observation. Management of patient was discussed with the following: Primary Care Provider: Dr. Snyder, agrees to admit. Counseling: I had a detailed discussion with the patient and/or guardian regarding the historical points, exam findings, and any diagnostic results supporting the discharge/admit diagnosis, lab results, radiology results, the need for further work-up and treatment in the hospital. 01/19 15:01 Order name: BMP; Complete Time: 16:02 sb4 01/19 15:01 Order name: Blood Culture Adult (2) sb4 01/19 15:01 Order name: CBC with Diff; Complete Time: 15:42 sb4 01/19 15:01 Order name: Hepatic Function; Complete Time: 16:02 sb4 01/19 15:01 Order name: Lipase; Complete Time: 16:02 sb4 01/19 15:01 Order name: Magnesium; Complete Time: 16:02 sb4 01/19 15:01 Order name: NT PRO-BNP; Complete Time: 16:02 sb4 01/19 15:01 Order name: PT-INR; Complete Time: 15:50 sb4 01/19 15:01 Order name: Ptt, Activated; Complete Time: 15:50 sb4 01/19 15:01 Order name: Troponin HS; Complete Time: 16:02 sb4 01/19 15:01 Order name: COVID-19/FLU A+B/RSV; Complete Time: 16:22 sb4 01/19 15:10 Order name: Lactate w/ 2H reflex if indic.; Complete Time: 16:02 sb4 01/19 16:43 Order name: Sputum Culture sb4 01/19 19:00 Order name: Lactate Sepsis 2 HR Follow-up; Complete Time: 19:01 EDMS 01/19 15:01 Order name: XRAY CXR (1 view); Complete Time: 15:56 sb4 01/19 15:56 Order name: Chest For PE Angio CT; Complete Time: 17:05 sb4 01/19 15:01 Order name: EKG; Complete Time: 15:02 sb4 01/19 15:01 Order name: Cardiac monitoring; Complete Time: 15:21 sb4 01/19 15:01 Order name: EKG - Nurse/Tech; Complete Time: 15:28 sb4 01/19 15:01 Order name: IV Saline Lock; Complete Time: 15:25 sb4 01/19 15:01 Order name: Labs collected and sent; Complete Time: 15:25 sb4 01/19 15:01 Order name: O2 Per Protocol; Complete Time: 15:21 sb4 01/19 15:01 Order name: O2 Sat Monitoring; Complete Time: 15:21 sb4 EC:35 Rate is 110 beats/min. Rhythm is regular, Sinus tachycardia. MI interval is normal at sb4 148 msec. QRS interval is normal at 74 msec. QT interval is normal at 338 msec. No Q waves. T waves are Normal. No ST changes noted. Clinical impression: Sinus tachycardia. Interpreted by me. Reviewed by me. Administered Medications: 15:32 Drug: MethylPrednisoLONE IVP 125 mg IVP once Route: IVP; Site: right antecubital; ko1 15:55 Follow up: Response: No adverse reaction ko1 15:32 Drug: DuoNeb Nebulize (3:1) (2.5 mg - 0.5 mg) 3 ml Nebulizer once Route: Nebulizer; ko1 15:54 Follow up: Response: No adverse reaction; Wheezing diminished ko1 15:55 Follow up: Response: No adverse reaction; Wheezing diminished ko1 16:26 Follow up: Response: No adverse reaction db 15:32 Drug: Magnesium Sulfate IVPB 1 grams IVPB once over 1 hrs Route: IVPB; Infused Over: 1 ko1 hrs; Site: right antecubital; 16:26 Follow up: Response: No adverse reaction; IV Status: Completed infusion; IV Intake: 50mldb 16:08 Drug: Rocephin IV 1 grams IV at calculated rate once; Given slow IV push per pharmacy db instructions Route: IV; Rate: calculated rate; Site: right antecubital; 16:24 Follow up: Response: No adverse reaction; IV Status: Completed infusion; IV Intake: 50mldb 16:25 Drug: AZITHromycin IVPB 500 mg IVPB once over 1 hrs; (mix in 250 mL NS) Route: IVPB; db Infused Over: 1 hrs; Site: right antecubital; 20:19 Follow up: Response: No adverse reaction; IV Status: Completed infusion; IV Intake: rv 250ml 17:07 Drug: Aspirin PO Chewable Tablet 162 mg PO once Route: PO; db 20:19 Follow up: Response: No adverse reaction rv 19:44 Drug: NS 0.9% IV 1000 ml IV at 1 bolus Per protocol; 1000 mL bolus Route: IV; Rate: 1 rv bolus; Site: left forearm; 20:19 Follow up: IV Status: Completed infusion; IV Intake: 1000ml rv Disposition: 15:13 I was immediately available on-site in the Emergency Department for consultation in the de3 care of the patient. Disposition Summary: 01/20/24 16:47 Hospitalization Ordered Notes: Hospitalization Status: Inpatient Admission sb4 Provider: Jared Snyder sb4 Condition: Fair sb4 Problem: new sb4 Symptoms: are unchanged sb4 Bed/Room Type: Standard sb4 Location: Telemetry/MedSurg (Inpatient)(01/20/24 19:48) cg Room Assignment: 214(01/20/24 19:48) cg Diagnosis - Lobar pneumonia, unspecified organism sb4 - Severe sepsis without septic shock sb4 - COPD/ Chronic obstructive pulmonary disease with (acute) exacerbation sb4 Forms: - Medication Reconciliation Form sb4 - SBAR form sb4 - Leadership Thank You Letter sb4 Signatures: Dispatcher [employer] EDZahra Bryson, RN RN Rafiq Menendez RN RN rv Reilly Baker RN RN ll1 Lito Arguello DO DO ms3 Martina Brown RN RN ko1 Shawna Canales RN RN Adrienne Powers PA-C PA-C sb4 Jaycee Jarquin jr12 Corrections: (The following items were deleted from the chart) 15:02 15:02 BASIC METABOLIC PANEL+C.LAB.BRZ ordered. EDMS EDMS 15:02 15:02 BLOOD CULTURE*+BA.LAB.BRZ ordered. EDMS EDMS 15:02 15:02 CBC+H.LAB.BRZ ordered. EDMS EDMS 15:02 15:02 HEPATIC FUNCTION+C.LAB.BRZ ordered. EDMS EDMS 15:02 15:02 LIPASE+C.LAB.BRZ ordered. EDMS EDMS 15:02 15:02 MAGNESIUM+C.LAB.BRZ ordered. EDMS EDMS 15:02 15:02 PROBNP+C.LAB.BRZ ordered. EDMS EDMS 15:02 15:02 PROTIME (+INR)+COAG.LAB.BRZ ordered. EDMS EDMS 15:02 15:02 PTT, ACTIVATED+COAG.LAB.BRZ ordered. EDMS EDMS 15:02 15:02 Troponin High Sensitivity+C.LAB.BRZ ordered. EDMS EDMS 15:02 15:02 COVID-19/FLU A+B/RSV+MOL.LAB.BRZ ordered. EDMS EDMS 15:10 15:10 LACTATE+C.LAB.BRZ ordered. EDMS EDMS 18:25 16:47 [place] [id number] 18:53 16:47 Telemetry/MedSurg (Inpatient) 4 [facility] 18:53 18:25 [id number] 19:48 18:53 [facility] ER [address] 19:48 18:[address]
--- NOTE | 2024-01-20 17:03 | RAD REPORT ---
EXAM DESCRIPTION: CT - Chest For Pe Angio - 01/20/2024 4:48 pm CLINICAL HISTORY: Chest pain COMPARISON: None. TECHNIQUE: Dynamically enhanced axial 3 mm thick images of the chest were obtained during administra tion of 100 mL Isovue 370 IV contrast. Coronal and oblique reconstruction images were generated and r eviewed. Exam utilizes a protocol for optimal evaluation of pulmonary arterial tree. Maximum intensity projections 3D imaging was utilized All CT scans are performed using dose optimization technique as appropriate and may include automated exposure control or mA/KV adjustment according to patient size. FINDINGS: A pulmonary embolus is not seen. A thoracic aortic aneurysm is not noted. A pleural effusion is not seen. A pericardial effusion is not seen. Moderate COPD Mild patchy bilateral lung opacities Mild fatty liver IMPRESSION: Negative for a pulmonary embolism. COPD Mild bilateral patchy lung opacities probably pneumonia
[2024-01-20] MEDS ORDERED: ASPIRIN 81 MG CHEWABLE TABLET ONE (17:05)
[2024-01-20] MEDS ORDERED: ACETAMINOPHEN 325 MG TABLET PO PRN (18:56)
[2024-01-20] MEDS: PIPER TAZO 3.375 GM in NA CHLORIDE 0.9% 100 ML IV SCH (19:00)
[2024-01-20 19:07] VITALS: BMI 32.3
[2024-01-20] MEDS ORDERED: PIPERACIL/TAZO 3.375 GM VIAL IV ONE (19:17)
[2024-01-20] MEDS ORDERED: NA CHLORIDE 0.9% 100 ML ONE (19:17)
[2024-01-20] MEDS ORDERED: NA CHLORIDE 0.9% 1,000 ML ONE (19:32)
[2024-01-20] MEDS: IPRATROPIUM BROM 0.5MG/2.5ML NEB SCH (20:27)
[2024-01-20] MEDS: ALBUTEROL 2.5 MG/3 ML NEB SOL NEB SCH (20:27)
--- NOTE | 2024-01-20 21:58 | P.HP ---
Patient History Date of Service: 01/20/24 Reason for admission: DYSPNEA History of Present Illness: JEISON HAS COPD AND IS WELL CONTROLLED ON TRELEGY. SHE GETS SICK ABOUT A WEEK AGO WITH DYSPNEA, COUGH AND FATIGUE. SHE HAS COPD EXACERBATION WITH EARLY PNEUMONIA. Allergies No Known Allergies Allergy (Verified 07/25/18 01:15) Home Medications: Fluticasone/Umeclidin/Vilanter [Trelegy Ellipta 100-62.5-25] 1 each IH BID 01/20/24 - Past Medical/Surgical History Has patient received pneumonia vaccine in the past: Yes Diabetic: No -: COPD -: bronchitis -: hysterectomy - Family History Mother -: Heart disease Father -: Lung disease - Social History Alcohol use: No CD- Drugs: No Caffeine use: Yes Review of Systems 10-point ROS is otherwise unremarkable General: Weakness, Malaise Physical Examination - Physical Exam General: Oriented x3, Mild distress, Moderate distress HEENT: Atraumatic, PERRLA, Mucous membr. moist/pink, EOMI, Sclerae nonicteric Neck: Supple, 2+ carotid pulse no bruit, No LAD, Without JVD or thyroid abnormality Respiratory: Diminished Cardiovascular: Regular rate/rhythm, Normal S1 S2 Gastrointestinal: Normal bowel sounds, No tenderness Musculoskeletal: No tenderness Integumentary: No rashes Neurological: Normal gait, Normal speech, Normal strength at 5/5 x4 extr, Normal tone, Normal affect Lymphatics: No axilla or inguinal lymphadenopathy - Studies Laboratory Data (last 24 hrs) 01/20/24 01/20/24 01/20/24 15:19 15:19 15:19 WBC 13.70 H Hgb 13.2 Hct 40.2 Plt Count 394 PT 13.6 H INR 1.24 APTT 35.1 Sodium 134 L Potassium 3.3 L BUN 16 Creatinine 0.88 Glucose 134 H Magnesium 2.1 Total Bilirubin 0.6 AST 10 L ALT 13 Alkaline Phosphatase 139 H Lipase 17 Assessment and Plan - Problems (Diagnosis) (1) Bacterial pneumonia Current Visit: Yes Status: Acute Plan: IV ZOSYN SPUTUM CULTURE CHEST PT (2) COPD exacerbation Onset Date: 07/28/18 Current Visit: No Status: Chronic Plan: ALB IPR NEBS IV STEROIDS PROGNOSIS FAIR. - Advance Directives Does patient have a Living Will: No Does patient have a Durable POA for Healthcare: No
[2024-01-20] MEDS: METHYLPREDNISOLONE 40 MG INJ IV SCH (23:14)
[2024-01-21] MEDS ORDERED: IPRATROPIUM BROM 0.5MG/2.5ML NEB SCH (01:00)
[2024-01-21 03:55] LABS: Absolute Basophils 0.1 K/uL (0-0.5); Absolute Lymphocytes (CBC) 0.5 K/uL (0.7-4.9); Absolute Monocytes 0.3 K/uL (0.1-1.3); Absolute Neutrophil 11.1 K/uL (1.8-8.0); Basophils % 0.5 % (0-1.3); Hematocrit 36.2 % (36.0-45.0); Hemoglobin 11.9 g/dL (12.0-15.0); Lymphocytes % 3.9 % (15.3-44.8); MCH 30.7 pg (27.0-35.0); MCV 92.9 fL (80-100); MPV 7.7 fL (7.6-11.3); Monocytes % 2.6 % (3.3-12.3); Platelets 354 thou/uL (152-406); Red Cell Distribution Width 14.1 % (12.1-15.2)
[2024-01-21 04:12] LABS: Anion Gap 7.6 mEq/L (5.0-15.0); Potassium 3.6 mEq/L (3.5-5.1)
[2024-01-21 04:31] LABS: Troponin High Sensitivity 67.6 pg/mL (<58.9)
[2024-01-21 04:49] LABS: Band Neutrophils 30 % (0-1); Blood Morphology Comment NOT SEEN (NOT SEEN); Differential Total Cells Count 100; Lymphocytes 4 % (15-42); Monocytes 4 % (0-10); Platelet Estimate ADEQ; Segmented Neutrophils 62 % (40-80)
[2024-01-21] MEDS: POTASSIUM CL SA 10 MEQ TAB PO ONE (05:06)
[2024-01-21] MEDS: UMECLIDIN IH SCH (09:00)
[2024-01-21] MEDS: VILANTER IH SCH (09:00)
[2024-01-21] MEDS: FLUTICASONE IH SCH (09:00)
--- NOTE | 2024-01-21 13:30 | EKG ---
Test Date: 2024-01-20 Test Time: 14:25:26 Drug Coordinator: MANOJ MEASUREMENT RESULTS: Intervals: Rate: 110 NE: 148 QRSD: 74 QT: 338 QTc: 457 [place]: P: 68 NE: 148 QRS: 41 T: 40 INTERPRETIVE STATEMENTS: Sinus tachycardia Otherwise normal ECG Compared to ECG 07/24/2018 20:27:35 Sinus rhythm no longer present Electronically Signed On 01-21-24 13:28:03 CDT by Vahid Bajwa
--- NOTE | 2024-01-21 17:03 | P.PN ---
Subjective Date of Service: 01/21/24 Chief Complaint: DYSPNEA Subjective: Improving SHE IS SOMEWHAT BETTER NO FEVER. Review of Systems 10-point ROS is otherwise unremarkable General: Weakness Physical Examination - Vital Signs Temperature: 97.3 F Blood Pressure: 142/69 Pulse: 104 Respirations: 20 Pulse Ox (%): 91 - Physical Exam General: Mild distress HEENT: Atraumatic, PERRLA, EOMI Neck: Supple, JVD not distended Respiratory: Clear to auscultation bilaterally, Normal air movement Cardiovascular: Regular rate/rhythm, Normal S1 S2 Gastrointestinal: Normal bowel sounds, No tenderness Musculoskeletal: No tenderness Integumentary: No rashes Neurological: Normal speech, Normal tone, Normal affect Lymphatics: No axilla or inguinal lymphadenopathy - Studies Medications List Reviewed: Yes Assessment And Plan - Current Problems (Diagnosis) (1) Bacterial pneumonia Current Visit: Yes Status: Acute Plan: IV ZOSYN SPUTUM CULTURE CHEST PT CONT MEDS (2) COPD exacerbation Onset Date: 07/28/18 Current Visit: No Status: Chronic Plan: ALB IPR NEBS IV STEROIDS PROGNOSIS FAIR.
[2024-01-22 04:16] LABS: Anion Gap 7.7 mEq/L (5.0-15.0); Potassium 3.7 mEq/L (3.5-5.1); Troponin High Sensitivity 29.2 pg/mL (<58.9)
[2024-01-22] MEDS: POTASSIUM CL SA 10 MEQ TAB PO ONE (05:07)
--- NOTE | 2024-01-22 18:07 | P.PN ---
Subjective Date of Service: 01/22/24 Chief Complaint: DYSPNEA Subjective: Improving SHE FEELS LOT BETTER WEAK, FATIGUED. Review of Systems 10-point ROS is otherwise unremarkable General: Weakness Physical Examination - Vital Signs Temperature: 97.9 F Blood Pressure: 151/70 Pulse: 87 Respirations: 19 Pulse Ox (%): 93 - Physical Exam General: Oriented x3, Moderate distress HEENT: Atraumatic, PERRLA, EOMI Neck: Supple, JVD not distended Respiratory: Clear to auscultation bilaterally, Normal air movement Cardiovascular: Regular rate/rhythm, Normal S1 S2 Gastrointestinal: Normal bowel sounds, No tenderness Musculoskeletal: No tenderness Integumentary: No rashes Neurological: Normal speech, Normal tone, Normal affect Lymphatics: No axilla or inguinal lymphadenopathy - Studies Medications List Reviewed: Yes Assessment And Plan - Current Problems (Diagnosis) (1) Bacterial pneumonia Current Visit: Yes Status: Acute Plan: IV ZOSYN SPUTUM CULTURE CHEST PT CONT MEDS (2) COPD exacerbation Onset Date: 07/28/18 Current Visit: No Status: Chronic Plan: ALB IPR NEBS IV STEROIDS PROGNOSIS FAIR. HYPOXIA CONT MEDS. HOME OXYGEN.
[2024-01-22] MEDS: carvediloL 3.125 MG TAB PO SCH (20:27)
[2024-01-23 04:14] LABS: Anion Gap 4.3 mEq/L (5.0-15.0); Potassium 4.3 mEq/L (3.5-5.1); Troponin High Sensitivity 30.1 pg/mL (<58.9)
[2024-01-23 04:32] VITALS: O2SAT 94
[2024-01-23] MEDS ORDERED: carvediloL 3.125 MG TAB PO SCH (08:00)
[2024-01-23 12:46] VITALS: BP 153/66; TEMP 97.3
--- NOTE | 2024-01-23 22:14 | P.DS ---
Admission Date: 01/20/24 Discharge Date: 01/23/24 Disposition: ROUTINE DISCHARGE Discharge Condition: FAIR Reason for Admission: DYSPNEA - Problems (1) Bacterial pneumonia Status: Acute (2) COPD exacerbation Onset Date: 07/28/18 Status: Chronic Brief History of Present Illness: JEISON HAS COPD AND IS WELL CONTROLLED ON TRELEGY. SHE GETS SICK ABOUT A WEEK AGO WITH DYSPNEA, COUGH AND FATIGUE. SHE HAS COPD EXACERBATION WITH EARLY PNEUMONIA. Hospital Course: JEISON HAS SEVERE COPD. SHE COMES WITH EXACERBATION AND BASAL PNEUMONIA, IMPROVES ON STEROIDS AND IV ZOSYN. SHE IS EAGER TO GO HOME ON MEDS. Vital Signs/Physical Exam: Temp Pulse Resp BP Pulse Ox 97.3 F 88 20 153/66 H 93 01/23/24 12:00 01/23/24 12:00 01/23/24 12:00 01/23/24 12:00 01/23/24 12:00 Laboratory Data at Discharge: WBC 11.90 thou/uL (4.3-10.9) H 01/21/24 03:00 Hgb 11.9 g/dL (12.0-15.0) L D 01/21/24 03:00 Hct 36.2 % (36.0-45.0) 01/21/24 03:00 Plt Count 354 thou/uL (152-406) 01/21/24 03:00 PT 13.6 SECONDS (9.5-12.5) H 01/20/24 15:19 INR 1.24 01/20/24 15:19 APTT 35.1 SECONDS (24.3-36.9) 01/20/24 15:19 Sodium 140 mEq/L (136-145) 01/23/24 03:01 Potassium 4.3 mEq/L (3.5-5.1) D 01/23/24 03:01 BUN 31 mg/dL (7-18) H 01/23/24 03:01 Creatinine 0.83 mg/dL (0.55-1.02) 01/23/24 03:01 Glucose 141 mg/dL (74-106) H 01/23/24 03:01 Magnesium 2.1 mg/dL (1.6-2.4) 01/20/24 15:19 Total Bilirubin 0.6 mg/dL (0.2-1.0) 01/20/24 15:19 AST 10 U/L (15-37) L 01/20/24 15:19 ALT 13 U/L (13-56) 01/20/24 15:19 Alkaline Phosphatase 139 U/L (45-117) H 01/20/24 15:19 Lipase 17 U/L (13-75) 01/20/24 15:19 Home Medications: Fluticasone/Umeclidin/Vilanter [Trelegy Ellipta 100-62.5-25] 1 each IH BID 01/20/24 Methylprednisolone [Medrol dosepack] 4 mg PO DIRECTED #1 adore 01/23/24 carvediloL [Coreg*] 3.125 mg PO BIDWM #60 tab 01/23/24 levoFLOXacin [Levaquin*] 500 mg PO DAILY #10 tab 01/23/24 New Medications: carvediloL [Coreg*] 3.125 mg PO BIDWM #60 tab levoFLOXacin [Levaquin*] 500 mg PO DAILY #10 tab Methylprednisolone [Medrol dosepack] 4 mg PO DIRECTED #1 adore Followup: Jared Snyder MD [Primary Care Provider] - 1-2 Weeks
== END 2024-01-23 14:31 | disposition home or self-care (01) | DRG 871 ==
LOC: ER 14:51 → ERHOLD 16:48 → 2ND 18:35 → ERHOLD 18:54 → 2ND 19:49
PROVIDERS: ADMIT Internal Medicine; ATTEND Internal Medicine
DX: A41.9 Sepsis, unspecified organism (principal); J15.9 Unspecified bacterial pneumonia; J96.01 Acute respiratory failure with hypoxia; J44.1 Chronic obstructive pulmonary disease with (acute) exacerbation; J44.0 Chronic obstructive pulmonary disease with (acute) lower respiratory infection; R65.20 Severe sepsis without septic shock; Z11.52 Encounter for screening for COVID-19; Z79.02 Long term (current) use of antithrombotics/antiplatelets; Z79.899 Other long term (current) drug therapy; Z90.710 Acquired absence of both cervix and uterus
CPT/HCPCS: 0241U; 36415; 71045; 71275; 80048; 80076; 83605; 83690; 83735; 83880; 84484; 85025; 85610; 85730; 87040; 93005; 94640; 94760; 96365; 96366; 96367; 96375; 97116; 97161; 99285; J0696; J2543; J2920; J2930; J3475; J7030; J7050; J7613; J7644; Q9967